=== PATIENT | male | born 1955 | race Caucasian/White ===

== ENCOUNTER 2019-11-04 09:02 | Emergency (ER) | payer OTHER ==
[2019-11-04] MEDS ORDERED: dexAMETHasone 10 MG/ML VIAL ONE (09:11)
[2019-11-04] MEDS ORDERED: EPINEPHRINE INH 0.5 ML VIAL IH ONE (09:11)
[2019-11-04 09:30] LABS: Protime INR 0.96
[2019-11-04 09:35] LABS: Basophils % 0.4 % (0-1.3); Hematocrit 48.4 % (39.6-49.0); Lymphocytes % 8.2 % (15.3-44.8); MPV 8.5 fL (7.6-11.3); RBC Red Blood Cell Count 5.29 M/uL (4.33-5.43)
[2019-11-04 09:44] LABS: ALT/SGPT 34 U/L (12-78); AST/SGOT 31 U/L (15-37); Albumin 3.9 g/dL (3.4-5.0); Alkaline Phosphatase 83 U/L (45-117); BUN Blood Urea Nitrogen 9 mg/dL (7-18); Bicarbonate 30 mmol/L (21-32); Bilirubin Direct 0.3 mg/dL (0-0.2); Bilirubin Total 0.9 mg/dL (0.2-1.0); Glucose Level 127 mg/dL (74-106); NT PRO-BNP 446 pg/mL (<125); Potassium 4.3 mmol/L (3.5-5.1); Protein, Total 8.7 g/dL (6.4-8.2); Sodium Level 134 mmol/L (136-145); Troponin (Emerg Dept Use Only) < 0.02 ng/mL (0.0-0.045)
--- NOTE | 2019-11-04 10:39 | RAD REPORT ---
EXAM DESCRIPTION: CT - Soft Tissue Neck W/Contr - 11/04/2019 10:07 am CLINICAL HISTORY: Difficulty breathing, history of head and neck mass COMPARISON: November 2016 TECHNIQUE: During dynamic enhancement using 100 milliliters nonionic IV contrast, axial 5 millimeter thick images of the neck were obtained. All CT scans are performed using dose optimization technique as appropriate and may include automated exposure control or mA/KV adjustment according to patient size. FINDINGS: Intracranial portion the examination is unremarkable. Mastoid air cells are clear. Mucosal thickening changes are present in the maxillary sinuses and ethmoid air cells. No air-fluid levels. Right deviation of the nasal septum is present. Bony degenerative changes are present throughout the cervical spine. Prominent facet joint degenerati ve changes are present. No pharyngeal mucosal mass identified. Parapharyngeal fat normal. No soft palate mass or asymmetry se en. Epiglottis is normal. Larynx is difficult to assess due to significant motion. Thickened, nodular vocal cords have been previously detailed. Residual or recurrent laryngeal nodule cannot be excluded or clearly evaluated on this study due to the motion. Significant luminal narrowing is not seen. The parotid, submandibular and thyroid gland tissue show no significant finding. No prevertebral soft tissue thickening. A few small nonspecific lymph nodes are present. No bulky lymphadenopathy. IMPRESSION: No suspicious mass or lymphadenopathy identifiable. No luminal narrowing, abscess or oth er emergent finding seen. Prior vocal cord nodularity cannot be assessed for compared on this study due to significant motion t hrough this region. No significant luminal narrowing at this site.
--- NOTE | 2019-11-04 10:39 | RAD REPORT ---
EXAM DESCRIPTION: RAD - Chest Single View - 11/04/2019 9:28 am CLINICAL HISTORY: Dyspnea COMPARISON: None. TECHNIQUE: AP portable chest image was obtained 0925 hours . FINDINGS: No focal mass or consolidation. Granuloma seen in the upper right lung field. Heart and va sculature are normal. No measurable pleural effusion and no pneumothorax. No acute bony abnormality s een. No acute aortic findings suspected. IMPRESSION: No acute cardiopulmonary process.
--- NOTE | 2019-11-04 11:35 | EDPHYS ---
Physician Documentation [facility] Name: Ladarius Alvarado Age: 64 yrs Sex: Male : 1955 Arrival Date: 11/04/2019 Time: 09:05 Bed 6 Private MD: ED Physician Severino Chapin HPI: 11/04 09:59 This 64 yrs old Male presents to ER via Ambulatory with complaints of jr8 Breathing Difficulty. 09:59 The patient has shortness of breath at rest. Onset: The symptoms/episode began/occurred jr8 gradually, 2 day(s) ago. Duration: The symptoms are continuous. The patient's shortness of breath has no apparent modifying factors. Associated signs and symptoms: The patient has no apparent associated signs or symptoms. Severity of symptoms: At their worst the symptoms were moderate in the emergency department the symptoms are unchanged. It is unknown whether or not the patient has had similar symptoms in the past. The patient has not recently seen a physician. 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 Stated that he has had to have it removed twice in past. Starting to have problems again. Feels as if he cannot breathe well now. Historical: - Allergies: 09:08 No Known Allergies; jl7 - Home Meds: 09:08 None [Active]; jl7 - PMHx: 09:08 None; jl7 - PSHx: 09:08 Jaw repair; "growth" in throat area x 2; jl7 - Immunization history:: Adult Immunizations unknown. - Social history:: Smoking status: Patient uses tobacco products, denies chronic smoking, but will smoke occasionally, Patient uses alcohol, on a daily basis. claims drinking about a 6 pack/day. - Ebola Screening: : Patient denies exposure to infectious person Patient denies travel to an Ebola-affected area in the 21 days before illness onset. ROS: 09:59 Eyes: Negative for injury, pain, redness, and discharge, Neck: Negative for injury, jr8 pain, and swelling, Cardiovascular: Negative for chest pain, palpitations, and edema, Abdomen/GI: Negative for abdominal pain, nausea, vomiting, diarrhea, and constipation, Back: Negative for injury and pain, MS/Extremity: Negative for injury and deformity, Skin: Negative for injury, rash, and discoloration, Neuro: Negative for headache, weakness, numbness, tingling, and seizure. 09:59 ENT: Positive for sore throat. 09:59 Respiratory: Positive for shortness of breath. Exam: 09:59 Eyes: Pupils equal round and reactive to light, extra-ocular motions intact. Lids and jr8 lashes normal. Conjunctiva and sclera are non-icteric and not injected. Cornea within normal limits. Periorbital areas with no swelling, redness, or edema. ENT: Nares patent. No nasal discharge, no septal abnormalities noted. Tympanic membranes are normal and external auditory canals are clear. Oropharynx with no redness, swelling, or masses, exudates, or evidence of obstruction, uvula midline. Mucous membranes moist. Patients voice hoarse. Mild stridor present Neck: Trachea midline, no thyromegaly or masses palpated, and no cervical lymphadenopathy. Supple, full range of motion without nuchal rigidity, or vertebral point tenderness. No Meningismus. Cardiovascular: Regular rate and rhythm with a normal S1 and S2. No gallops, murmurs, or rubs. Normal PMI, no JVD. No pulse deficits. Respiratory: Lungs have equal breath sounds bilaterally, clear to auscultation and percussion. No rales, rhonchi or wheezes noted. No increased work of breathing, no retractions or nasal flaring. Abdomen/GI: Soft, non-tender, with normal bowel sounds. No distension or tympany. No guarding or rebound. No evidence of tenderness throughout. Back: No spinal tenderness. No costovertebral tenderness. Full range of motion. Skin: Warm, dry with normal turgor. Normal color with no rashes, no lesions, and no evidence of cellulitis. MS/ Extremity: Pulses equal, no cyanosis. Neurovascular intact. Full, normal range of motion. Neuro: Awake and alert, GCS 15, oriented to person, place, time, and situation. Cranial nerves II-XII grossly intact. Motor strength 5/5 in all extremities. Sensory grossly intact. Cerebellar exam normal. Normal gait. Vital Signs: 09:08 BP 119 / 83; Pulse 104; Resp 22; Temp 99.1(TE); Pulse Ox 95% on R/A; Weight 61.23 kg; jl7 Height 5 ft. 7 in. (170.18 cm); Pain 0/10; 09:43 BP 112 / 82; Pulse 94; Resp 24 S; Pulse Ox 92% on R/A; Pain 0/10; jl7 09:43 Pulse Ox 97% on 2 lpm NC; jl7 10:42 BP 122 / 82; Pulse 90; Resp 20; Pulse Ox 95% on 2 lpm NC; tw2 11:32 BP 112 / 81; Pulse 86; Resp 20; Pulse Ox 96% on 2 lpm NC; tw2 12:38 BP 109 / 97; Pulse 81; Resp 20 S; Pulse Ox 94% on 2 lpm NC; ca1 09:08 Body Mass Index 21.14 (61.23 kg, 170.18 cm) jl7 MDM: 09:05 Patient medically screened. [email or web address] 11:32 Data reviewed: vital signs, nurses notes, lab test result(s), radiologic studies, CT [facility] scan, plain films. Data interpreted: Pulse oximetry: on room air is 96 %. Interpretation: normal. Counseling: I had a detailed discussion with the patient and/or guardian regarding: the historical points, exam findings, and any diagnostic results supporting the discharge/admit diagnosis, lab results, radiology results, the need to transfer to another facility. ED course: ENT and SICU sofa back upholsterer at [facility] were consulted and accepted patient for evaluation of laryngeal mass. 11/04 09:06 Order name: Basic Metabolic Panel 8 11/04 09:06 Order name: CBC with Diff jr8 11/04 09:06 Order name: LFT's [facility] 11/04 09:06 Order name: Magnesium [facility] 11/04 09:06 Order name: NT PRO-BNP [facility] 11/04 09:06 Order name: PT-INR [facility] 11/04 09:06 Order name: Troponin (emerg Dept Use Only) [facility] 11/04 09:39 Order name: CBC with Automated Diff; Complete Time: 09:53 EDMS 11/04 09:40 Order name: Protime (+INR); Complete Time: 09:53 EDMS 11/04 09:46 Order name: Basic Metabolic Panel EDMS 11/04 09:46 Order name: Liver (Hepatic) Function EDMS 11/04 09:46 Order name: Troponin (Emerg Dept Use Only) EDMS 11/04 09:46 Order name: NT PRO-BNP EDMS 11/04 09:46 Order name: Magnesium EDMS 11/04 09:06 Order name: XRAY Chest (1 view); Complete Time: 10:42 11/04 09:06 Order name: EKG; Complete Time: 09:11 11/04 09:06 Order name: Cardiac monitoring; Complete Time: :25 11/04 09:06 Order name: EKG - Nurse/Tech; Complete Time: :25 11/04 09:06 Order name: IV Saline Lock; Complete Time: :11/04 09:06 Order name: Labs collected and sent; Complete Time: 11/04 09:06 Order name: O2 Per Protocol; Complete Time: 09:11/04 09:06 Order name: O2 Sat Monitoring; Complete Time: :11/04 09:06 Order name: CT Soft Tissue Neck W/contr; Complete Time: 10:42 Administered Medications: 09:25 Drug: Decadron - Dexamethasone 10 mg Route: IVP; Site: right antecubital; jl7 10:00 Follow up: Response: No adverse reaction tw2 09:25 Drug: Racemic EPINPHrine 0.5 ml Route: Inhalation; jl7 Disposition: 11/04/19 11:33 Transfer ordered to [facility]. Diagnosis are Laryngeal Mass, Shortness of breath, Stridor. - Reason for transfer: Higher level of care. - Accepting physician is [facility]. - Condition is Stable. - Problem is new. - Symptoms have improved. Addendum: 11/06/2019 09:26 Co-signature as Attending Physician, Severino Chapin MD I agree with the assessment and c diaz plan of care. Signatures: Dispatcher [employer] Severino Jiménez MD MD cha Roszak, Josh, PA PA jr8 Brooke Love RN RN jl7 Kailey Mcconnell RN RN Janna Michaud RN tw2 Corrections: (The following items were deleted from the chart) 11/04 12:39 11:33 11/04/2019 11:33 Transfer ordered to [facility]. Diagnosis is ca1 Laryngeal Mass; Shortness of breath; Stridor. Reason for transfer: Higher level of care. Accepting physician is [facility]. Condition is Stable. Problem is new. Symptoms have improved. jr8
--- NOTE | 2019-11-04 11:35 | ER ---
Nurse's Notes [facility] Name: Ladarius Alvarado Age: 64 yrs Sex: Male : 1955 Arrival Date: 11/04/2019 Time: 09:05 Bed 6 Private MD: Diagnosis: Laryngeal Mass;Shortness of breath;Stridor Presentation: 11/04 09:05 Presenting complaint: Patient states: Breathing difficulty that began yesterday. Pt jl7 reports that this has been off and on for years and has had two surgeries to remove/ reduce a growth in his throat area which he believes is causing his breathing difficulties today. Transition of care: patient was not received from another setting of care. Onset of symptoms is unknown. Risk Assessment: Do you want to hurt yourself or someone else? Patient reports no desire to harm self or others. Initial Sepsis Screen: Does the patient meet any 2 criteria? RR > 20 per min. HR > 90 bpm. Does the patient have a suspected source of infection? No. Patient's initial sepsis screen is negative. Care prior to arrival: None. 09:05 Acuity: MILVIA 2 7 09:05 Method Of Arrival: Ambulatory [facility] Triage Assessment: 09:05 Respiratory: Reports shortness of breath Onset: The symptoms/episode began/occurred tw2 yesterday, the patient has moderate shortness of breath. Historical: - Allergies: 09:08 No Known Allergies; jl7 - Home Meds: 09:08 None [Active]; jl7 - PMHx: 09:08 None; jl7 - PSHx: 09:08 Jaw repair; "growth" in throat area x 2; jl7 - Immunization history:: Adult Immunizations unknown. - Social history:: Smoking status: Patient uses tobacco products, denies chronic smoking, but will smoke occasionally, Patient uses alcohol, on a daily basis. claims drinking about a 6 pack/day. - Ebola Screening: : Patient denies exposure to infectious person Patient denies travel to an Ebola-affected area in the 21 days before illness onset. Screenin:43 Abuse screen: Denies threats or abuse. Nutritional screening: No deficits noted. tw2 Tuberculosis screening: No symptoms or risk factors identified. Fall Risk None identified. Assessment: 09:20 General: Appears in no apparent distress. uncomfortable, Behavior is calm, cooperative, jl7 appropriate for age. Pain: Denies pain. Neuro: Level of Consciousness is awake, alert, obeys commands, Oriented to person, place, time, situation. Cardiovascular: Heart tones present Patient's skin is warm and dry. Rhythm is regular. Respiratory: Airway is patent Trachea deviated to left Respiratory effort is even, labored, Respiratory pattern is symmetrical, tachypnea Breath sounds are coarse bilaterally. Breath sounds are diminished bilaterally. Derm: Skin is pink, warm \\T\\ dry. 10:43 Reassessment: Patient appears in no apparent distress at this time. Patient and/or tw2 family updated on plan of care and expected duration. Pain level reassessed. Patient is alert, oriented x 3, equal unlabored respirations, skin warm/dry/pink. Patient states symptoms have improved. 11:33 Reassessment: Patient appears in no apparent distress at this time. Patient and/or tw2 family updated on plan of care and expected duration. Pain level reassessed. Patient is alert, oriented x 3, equal unlabored respirations, skin warm/dry/pink. 12:38 Reassessment: Patient appears in no apparent distress at this time. Patient is alert, ca1 oriented x 3, equal unlabored respirations, skin warm/dry/pink. Report given to TAMICA Brumfield. Vital Signs: 09:08 BP 119 / 83; Pulse 104; Resp 22; Temp 99.1(TE); Pulse Ox 95% on R/A; Weight 61.23 kg; jl7 Height 5 ft. 7 in. (170.18 cm); Pain 0/10; 09:43 BP 112 / 82; Pulse 94; Resp 24 S; Pulse Ox 92% on R/A; Pain 0/10; jl7 09:43 Pulse Ox 97% on 2 lpm NC; jl7 10:42 BP 122 / 82; Pulse 90; Resp 20; Pulse Ox 95% on 2 lpm NC; tw2 11:32 BP 112 / 81; Pulse 86; Resp 20; Pulse Ox 96% on 2 lpm NC; tw2 12:38 BP 109 / 97; Pulse 81; Resp 20 S; Pulse Ox 94% on 2 lpm NC; ca1 09:08 Body Mass Index 21.14 (61.23 kg, 170.18 cm) 7 ED Course: 09:05 Patient arrived in ED. jl7 09:05 Severino Chapin MD is Attending Physician. aleksandr 09:05 [facility] Castellon [facility]. jr8 09:05 Severino Chapin MD is Attending Physician. jr8 09:05 Bed in low position. Call light in reach. monitoring analyst on. Pulse ox on. NIBP on. tw2 09:07 Brooke Love, NIECY is Primary Nurse. jl7 09:07 Triage completed. jl7 09:08 Arm band placed on right wrist. jl7 09:18 Radiology exam delayed due to lab results not completed at this time. (BUN/Creatinine). bq 09:30 No provider procedures requiring assistance completed. Inserted saline lock: 20 gauge ca1 in right antecubital area, using aseptic technique. ,using aseptic technique. by NIECY Cox Blood collected. 10:01 Primary Nurse role handed off by Brooke Love RN jl7 10:03 XRAY Chest (1 view) In Process Unspecified. EDMS 10:09 CT completed. Patient tolerated procedure well. Patient moved back from CT. mw3 10:29 CT Soft Tissue Neck W/contr In Process Unspecified. EDMS 10:42 Janna Escobedo, NIECY is Primary Nurse. tw2 12:39 Patient transferred, IV remains in place. ca1 Administered Medications: 09:25 Drug: Decadron - Dexamethasone 10 mg Route: IVP; Site: right antecubital; jl7 10:00 Follow up: Response: No adverse reaction tw2 09:25 Drug: Racemic EPINPHrine 0.5 ml Route: Inhalation; jl7 Outcome: 11:33 ER care complete, transfer ordered by . jr8 12:39 Transferred by ground EMS to [facility], Transfer form completed. ca1 X-rays sent w/ patient. 12:39 Condition: stable 12:39 Instructed on the need for transfer. 12:39 Patient left the ED. ca1 Signatures: Dispatcher [employer] EDMS Severino Chapin MD MD cha Quilty, Betty bq Roszak, Josh, PA PA jr8 Janna Escobedo, RN RN tw2 Brooke Love RN RN jl7 Kelsi Avalos mw3 Kailey Mcconnell RN RN ca1 Corrections: (The following items were deleted from the chart) 11:33 10:42 BP 122 / 82; Pulse 90bpm; Resp 20bpm; Pulse Ox 95% RA; tw 11:33 11:32 BP 112 / 81; Pulse 86bpm; Resp 20bpm; Pulse Ox 96% RA;
[2019-11-04 13:04] VITALS: TEMP 99.1
[2019-11-04 13:10] VITALS: BP 109/97; O2SAT 94
--- NOTE | 2019-11-07 16:45 | EKG ---
Test Date: 2018-11-04 Test Time: 09:16:01 Video Game Producer: JUMA MEASUREMENT RESULTS: Intervals: Rate: 93 [place]: 148 QRSD: 76 QT: 368 QTc: 457 [place]: P: 68 [place]: 148 QRS: 63 T: 70 INTERPRETIVE STATEMENTS: Normal sinus rhythm Normal ECG Cardioserver Error - Incorrect date on EKG This EKG was performed on 11-04-2019 No previous ECG available for comparison Electronically Signed On 11-07-19 16:41:48 MANUFACTURING PROJECT ENGINEER by Salvador Foote
== END 2019-11-04 12:39 | disposition short-term general hospital (02) ==
LOC: ER 09:02
DX: J38.7 Other diseases of larynx (principal)
CPT/HCPCS: 93005; 85025; 80048; 36415; 83735; 85610; 80076; 84484; 83880; 70491; 71045; 96374; 99285; Q9967; J1100

== ENCOUNTER 2021-01-10 11:44 | Emergency (ER) | payer OTHER ==
--- OUTSIDE RECORDS SUMMARY | 2021-01-10 11:46 | XMS REPORT | Continuity of Care Document ---
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 Social History Social Habit Start Date Stop Date Quantity Comments Source Sex Assigned At [facility] Medications This patient has no known medications. Procedures This patient has no known procedures. Plan of Care Planned Activity Planned Date Details Comments Source Future Scheduled 2020-07-02 INFLUENZA VACCINE (#1) [facility]00 [code = INFLUENZA Medical Ce nter VACCINE (#1)] Future Scheduled 2019-06-[address] [facility] - Test 00:00:00 WELLNESS (YEAR 2 or Medical Center FIRST YEAR if no IPPE) [code = MEDICARE ANNUAL WELLNESS (YEAR 2 or FIRST YEAR if no IPPE)] Future Scheduled 2018 PNEUMOCOCCAL 65+ YRS [facility] - Test 00:00:00 (1 of 1 - Medical Center SUPU00_Nhoazcy PCV13) [code = PNEUMOCOCCAL 65+ YRS (1 of 1 - INLY19_Pmigxco PCV13)] Future Scheduled [address] [facility] - Test 00:00:00 malignant neoplasm of Medica l Center colon (procedure) [code = 881234326] Results Test Description Test Time Test Comments Results Result Sour e Comments TISSUE EXAM 2019-11-08 Surgical Pathology 18:03:00 Report Case: [id number] Authorizing Provider: Ines Burgess MD Collected: 11/05/2019 1236 Ordering Location: [address] Received: 11/06/2019 0822 Cardiovascular Pathologist: Jo Ann Adkins MD Specimens: A) - Soft Tissue, Other, RIGHT ANTERIOR SUPERGLOTTIS B) - Soft Tissue, Other, RIGHT MID AE FOLD C) - Soft Tissue, Other, RIGHT ARYTENOID D) - Soft Tissue, Other, LEFT ARYTENOID E) - Soft Tissue, Other, LEFT MID AE FOLD F) - Soft Tissue, Debridement, Laryngeal Debridement A. LARYNX, RIGHT ANTERIOR SUPRAGLOTTIS, LARYNGOSCOPIC DEBRIDEMENT: - SQUAMOUS PAPILLOMA - NO HIGH GRADE DYSPLASIA OR INVASIVE CARCINOMA SEENB.LARYNX, RIGHT MID AE FOLD, LARYNGOSCOPIC DEBRIDEMENT: - SQUAMOUS PAPILLOMA WITH LOW GRADE DYSPLASIA - NO HIGH GRADE DYSPLASIA OR INVASIVE CARCINOMA SEENC. LARYNX, RIGHT ARYTENOID, LARYNGOSCOPIC DEBRIDEMENT: - SQUAMOUS PAPILLOMA WITH LOW GRADE DYSPLASIA - NO HIGH GRADE DYSPLASIA OR INVASIVE CARCINOMA SEEND. LARYNX, LEFT ARYTENOID, LARYNGOSCOPIC DEBRIDEMENT: - SQUAMOUS PAPILLOMA WITH LOW GRADE DYSPLASIA - NO HIGH GRADE DYSPLASIA OR INVASIVE CARCINOMA SEENE. LARYNX, MID AE FOLD, LARYNGOSCOPIC DEBRIDEMENT: - SQUAMOUS PAPILLOMA WITH LOW GRADE DYSPLASIA - NO HIGH GRADE DYSPLASIA OR INVASIVE CARCINOMA SEENF. LARYNX, DEBRIDEMENT: - MULTIPLE FRAGMENTS OF SQUAMOUS PAPILLOMA WITH FOCAL LOW GRADE DYSPLASIA - NO HIGH GRADE DYSPLASIA OR INVASIVE CARCINOMA SEEN Signing Pathologist Direct Phone Line: [phone] ally signed by Jo Ann Adkins MD on 11/08/2019 at 6:03 PMHPV effect and parakeratosis [id number] X 6Airway obstructionParts A-E are all soft tissue other and part F is soft tissue, debridement A. Received in formalin labeled with the patient's name, accession number and "right anterior supraglottis" is a 0.5 x 0.5 x 0.3 cm marte-pink tissue, which is submitted in toto in A1. B. Received in formalin labeled with the patient's name, accession number and "right mid AE fold" is a 0.9 x 0.4 x 0.3 cm marte-pink papilliferous soft tissue, which is submitted in toto in B1. C. Received in formalin labeled with the patient's name, accession number and "right arytenoid" is a 0.7 x 0.5 x 0.3 cm marte-pink papilliferous soft tissue, which is submitted in toto in C1.D. Received in formalin labeled with the patient's name, accession number and "left arytenoid" is a 0.7 x 0.3 x 0.3 cm aggregate of marte-pink papilliferous soft tissue, which is submitted in toto in D1.E. Received in formalin labeled with the patient's name, accession number and "left mid AE fold" is a 0.4 x 0.3 x 0.3 cm aggregate of marte-pink papilliferous soft tissue, which is submitted in toto in E1.F. Received in formalin labeled with the patient's name, accession number and "laryngeal debridement" is a 10.0 x 2.0 x 0.4 cm aggregate of red-pink soft tissue, which is filtered and submitted in toto in F1-F6. PA/ewPERFORMED HEPATITIS C PCR, QUANTITATIVE 2019-11-07 16:37:00 Test Item Value Reference Range Interpretation Comme nts HCV NUMERIC RESULT (BEAKER) (test code = 2700) [id number] IU/mL <15 H This test uses a Real-Time Polymerase Chain Reaction (RT-PCR) methodology and was performed using VIDA Ampliprep/VIDA TaqMan HCV test kit version 2.0 ([employer]).Reportable range for this assay is 15 - 100,000,000 IU per mL (1.18 - 8.00 Log IU/mL).[id number] 05:27:00 Test Item Value Reference Range Interpretation Comments MAGNESIUM (BEAKER) 1.9 mg/dL 1.6-2.6 Specimen slightly (test code = 627) hemolyzed [id number] 05:27:00 Test Item Value Reference Range Interpretation Comments PHOSPHORUS (BEAKER) 2.0 mg/dL 2.3-4.7 L Specimen slightly (test code = 604) hemolyzed BASIC METABOLIC [id number] 05:27:00 Test Item Value Reference Range Interpretation Comments SODIUM (BEAKER) 139 meq/L 136-145 (test code = 381) POTASSIUM (BEAKER) 4.3 meq/L 3.5-5.1 Specimen slightly (test code = 379) hemolyzed CHLORIDE (BEAKER) 107 meq/L 98-107 (test code = 382) CO2 (BEAKER) (test 23 meq/L 22-29 code = 355) BLOOD UREA NITROGEN 8 mg/dL 7-21 (BEAKER) (test code = 354) CREATININE (BEAKER) 0.67 mg/dL 0.57-1.25 Specimen slightly (test code = 358) hemolyzed GLUCOSE RANDOM 90 mg/dL 70-105 (BEAKER) (test code = 652) CALCIUM (BEAKER) 8.2 mg/dL 8.4-10.2 L (test code = 697) EGFR (BEAKER) (test 119 mL/min/1.73 ESTIM ATED GFR IS code = 1092) sq m NOT ACCURATE CREATININE CLEARANCE IN PREDICTING GLOMERULAR FILTRATION RATE . ESTIMATED GFR I S NOT APPLICABLE FOR DIALYSIS PATIEN TS. CBC (HEMOGRAM ONLY)2019-11-07 04:58:00 Test Item Value Reference Range Interpretation Comments WHITE BLOOD CELL COUNT (BEAKER) 17.1 K/ L 3.5-10.5 H (test code = 775) RED BLOOD CELL COUNT (BEAKER) 4.25 M/ L 4.63-6.08 L (test code = 761) HEMOGLOBIN (BEAKER) (test code = 13.1 GM/DL 13.7-17.5 L 410) HEMATOCRIT (BEAKER) (test code = 40.0 % 40.1-51.0 L 411) MEAN CORPUSCULAR VOLUME (BEAKER) 94.1 fL 79.0-92.2 H (test code = 753) MEAN CORPUSCULAR HEMOGLOBIN 30.8 pg 25.7-32.2 (BEAKER) (test code = 751) MEAN CORPUSCULAR HEMOGLOBIN CONC 32.8 GM/DL 32.3-36.5 (BEAKER) (test code = 752) RED CELL DISTRIBUTION WIDTH 13.5 % 11.6-14.4 (BEAKER) (test code = 412) PLATELET COUNT (BEAKER) (test 279 K/CU MM 150-450 code = 756) MEAN PLATELET VOLUME (BEAKER) 10.9 fL 9.4-12.4 (test code = 754) NUCLEATED RED BLOOD CELLS 0 /100 WBC 0-0 (BEAKER) (test code = 413) [id number] 05:05:00 Test Item Value Reference Range Interpretation Comments MAGNESIUM (BEAKER) 1.9 mg/dL 1.6-2.6 Specimen slightly (test code = 627) hemolyzed [id number] 05:05:00 Test Item Value Reference Range Interpretation Comments PHOSPHORUS (BEAKER) 2.2 mg/dL 2.3-4.7 L Specimen slightly (test code = 604) hemolyzed BASIC METABOLIC [id number] 05:05:00 Test Item Value Reference Range Interpretation Comments SODIUM (BEAKER) 136 meq/L 136-145 (test code = 381) POTASSIUM (BEAKER) 4.3 meq/L 3.5-5.1 Specimen slightly (test code = 379) hemolyzed CHLORIDE (BEAKER) 104 meq/L 98-107 (test code = 382) CO2 (BEAKER) (test 27 meq/L 22-29 code = 355) BLOOD UREA NITROGEN 9 mg/dL 7-21 (BEAKER) (test code = 354) CREATININE (BEAKER) 0.70 mg/dL 0.57-1.25 Specimen slightly (test code = 358) hemolyzed GLUCOSE RANDOM 119 mg/dL 70-105 H (BEAKER) (test code = 652) CALCIUM (BEAKER) 8.7 mg/dL 8.4-10.2 (test code = 697) EGFR (BEAKER) (test 113 mL/min/1.73 ESTIM ATED GFR IS code = 1092) sq m NOT ACCURATE CREATININE CLEARANCE IN PREDICTING GLOMERULAR FILTRATION RATE . ESTIMATED GFR I S NOT APPLICABLE FOR DIALYSIS PATIEN TS. CBC (HEMOGRAM ONLY)2019-11-06 04:32:00 Test Item Value Reference Range Interpretation Comments WHITE BLOOD CELL COUNT 18.7 K/ L 3.5-10.5 H (BEAKER) (test code = 775) RED BLOOD CELL COUNT 4.33 M/ L 4.63-6.08 L (BEAKER) (test code = 761) HEMOGLOBIN (BEAKER) 13.5 GM/DL 13.7-17.5 L (test code = 410) HEMATOCRIT (BEAKER) 41.4 % 40.1-51.0 (test code = 411) MEAN CORPUSCULAR 95.6 fL 79.0-92.2 H Discordant MCV VOLUME (BEAKER) (test result compared to code = 753) previous result ; clinical correl ation required. MEAN CORPUSCULAR 31.2 pg 25.7-32.2 HEMOGLOBIN (BEAKER) (test code = 751) MEAN CORPUSCULAR 32.6 GM/DL 32.3-36.5 HEMOGLOBIN CONC (BEAKER) (test code = 752) RED CELL DISTRIBUTION 13.6 % 11.6-14.4 WIDTH (BEAKER) (test code = 412) PLATELET COUNT 279 K/CU MM 150-450 (BEAKER) (test code = 756) MEAN PLATELET VOLUME 10.0 fL 9.4-12.4 (BEAKER) (test code = 754) NUCLEATED RED BLOOD 0 /100 WBC 0-0 CELLS (BEAKER) (test code = 413) POCT-GLUCOSE [id number] 23:29:00 Test Item Value Reference Range Interpretation Comments POC-GLUCOSE METER 121 mg/dL 70-110 H : TESTED A T [facility] 6720 (BEAKER) (test code = [facility], 153) [id number]: Hydro Mechanic/Techni james ID = [id number] for MATT BARTLETT POCT-GLUCOSE [id number] 17:29:00 Test Item Value Reference Range Interpretation Comments POC-GLUCOSE METER 109 mg/dL 70-110 : TESTED A T [facility] 6720 (BEAKER) (test code = [facility], 153) 56435: Hydro Mechanic/Techni james ID = [id number] for GAYATHRI TERAN BASIC METABOLIC [id number] 03:24:00 Test Item Value Reference Range Interpretation Comments SODIUM (BEAKER) 134 meq/L 136-145 L (test code = 381) POTASSIUM (BEAKER) 4.3 meq/L 3.5-5.1 (test code = 379) CHLORIDE (BEAKER) 98 meq/L 98-107 (test code = 382) CO2 (BEAKER) (test 28 meq/L 22-29 code = 355) BLOOD UREA NITROGEN 16 mg/dL 7-21 (BEAKER) (test code = 354) CREATININE (BEAKER) 0.86 mg/dL 0.57-1.25 (test code = 358) GLUCOSE RANDOM 173 mg/dL 70-105 H (BEAKER) (test code = 652) CALCIUM (BEAKER) 9.4 mg/dL 8.4-10.2 (test code = 697) EGFR (BEAKER) (test 89 mL/min/1.73 ESTIMA MEKHI GFR IS code = 1092) sq m NOT ACCURATE CREATININE CLEARANCE IN PREDICTING GLOMERULAR FILTRATION RATE . ESTIMATED GFR I S NOT APPLICABLE FOR DIALYSIS PATIEN TS. [id number] 03:24:00 Test Item Value Reference Range Interpretation Comments PHOSPHORUS (BEAKER) (test code = 3.3 mg/dL 2.3-4.7 604) [id number] 03:24:00 Test Item Value Reference Range Interpretation Comments MAGNESIUM (BEAKER) (test code = 2.1 mg/dL 1.6-2.6 627) CBC (HEMOGRAM ONLY)2019-11-05 03:05:00 Test Item Value Reference Range Interpretation Comments WHITE BLOOD CELL COUNT (BEAKER) 9.2 K/ L 3.5-10.5 (test code = 775) RED BLOOD CELL COUNT (BEAKER) 5.08 M/ L 4.63-6.08 (test code = 761) HEMOGLOBIN (BEAKER) (test code = 15.6 GM/DL 13.7-17.5 410) HEMATOCRIT (BEAKER) (test code = 46.3 % 40.1-51.0 411) MEAN CORPUSCULAR VOLUME (BEAKER) 91.1 fL 79.0-92.2 (test code = 753) MEAN CORPUSCULAR HEMOGLOBIN 30.7 pg 25.7-32.2 (BEAKER) (test code = 751) MEAN CORPUSCULAR HEMOGLOBIN CONC 33.7 GM/DL 32.3-36.5 (BEAKER) (test code = 752) RED CELL DISTRIBUTION WIDTH 13.1 % 11.6-14.4 (BEAKER) (test code = 412) PLATELET COUNT (BEAKER) (test 304 K/CU MM 150-450 code = 756) MEAN PLATELET VOLUME (BEAKER) 10.1 fL 9.4-12.4 (test code = 754) NUCLEATED RED BLOOD CELLS 0 /100 WBC 0-0 (BEAKER) (test code = 413) CT, SOFT TISSUE NECK, [id number] 17:58:00Anesthesia:->NoneFINAL REPORT CT, SOFT TISSUE NECK, CONTRAST INDICATION: Neck mass, history of malignancy (Age > 15y) COMPARISON: None TECHNIQUE: Postcontrast CT images of the cervical soft tissues. Multiplanar, orthogonal reformatted images were generated. DOSE REDUCTION: Dose modulation, iterative reconstruction, and/or weight-based adjustment of the mA/kV was utilized to reduce the radiation dose to as low as reasonably achievable. FINDINGS: No discrete cervical mass or fluid collection. There is a punctate metallic foreign body embedded within the right sternocleidomastoid muscle. Aerodigestive tract: There is ill-defined debris or soft tissue at the level of the true vocal folds, but the apparent focal airway narrowing at this level may just be due to phase of swallowing during exam. Airway is patent.Lymph nodes: No adenopathy.Salivary glands: Parotid and submandibular glands are normal.Thyroid: Normal.Thoracic inlet: Large calcified granuloma in the right lung apex.Vasculature: Normal course and caliber of visualized vascular structures.Osseous structures: Minor spondylosis of the cervical spine. No fracture or aggressive osseous lesion.Orbits: Visualized globes are intact.Paranasal sinuses: No evidence of sinusitis. IMPRESSION: 1.Ill-defined soft tissue or debris at the level of the true vocal folds, may be better evaluated by direct visualization as clinically indicated.2.Otherwise, no discrete cervical mass or collection. No evidence of airway compromise.3.Punctate metallic foreign body embedded within the superficial aspect of the right sternocleidomastoid muscle. Signed: Eunice Lainez MDRmagdy Verified Date/Time: 11/04/2019 17:58:57 RAD, CHEST, 1 VIEW, NON [id number] 16:08:00Reason for exam:->SOBShould this be performed at the bedside?->YesFINAL REPORT AP view of the chest dated 11/04/2019 COMPARISON: November 05, 2016CLINICAL INFORMATION: SOB Comment: Heart is normal in size. Pulmonary vasculature is unremarkable. A 1 cm calcified granuloma is seen in the right upper lobe. The rest of the lungs are clear. No pulmonary infiltrate or pleural effusion is present. Impression: No active cardiopulmonary disease or interval change. Signed: Obdulia Ribeiro MDReport Verified Date/Time: 11/04/2019 16:08:39 Reading Location: [facility] C013X Ortho Consult Reading Room [id number] 15:29:00 Test Item Value Reference Range Interpretation Comments MAGNESIUM (BEAKER) 2.1 mg/dL 1.6-2.6 Specimen markedly (test code = 627) hemolyzed [id number] 15:29:00 Test Item Value Reference Range Interpretation Comments PHOSPHORUS (BEAKER) 4.3 mg/dL 2.3-4.7 Specimen markedly (test code = 604) hemolyzed BASIC METABOLIC [id number] 15:29:00 Test Item Value Reference Range Interpretation Comments SODIUM (BEAKER) 133 meq/L 136-145 L (test code = 381) POTASSIUM (BEAKER) 5.5 meq/L 3.5-5.1 H Specimen markedly (test code = 379) hemolyzed CHLORIDE (BEAKER) 95 meq/L 98-107 L (test code = 382) CO2 (BEAKER) (test 27 meq/L 22-29 code = 355) BLOOD UREA NITROGEN 10 mg/dL 7-21 (BEAKER) (test code = 354) CREATININE (BEAKER) 0.80 mg/dL 0.57-1.25 Specimen markedly (test code = 358) hemolyzed GLUCOSE RANDOM 112 mg/dL 70-105 H (BEAKER) (test code = 652) CALCIUM (BEAKER) 9.7 mg/dL 8.4-10.2 (test code = 697) EGFR (BEAKER) (test 97 mL/min/1.73 ESTIMA MEKHI GFR IS code = 1092) sq m NOT ACCURATE CREATININE CLEARANCE IN PREDICTING GLOMERULAR FILTRATION RATE . ESTIMATED GFR I S NOT APPLICABLE FOR DIALYSIS PATIEN TS. CBC W/PLT COUNT & AUTO [id number] 15:14:00 Test Item Value Reference Range Interpretation Comments WHITE BLOOD CELL COUNT (BEAKER) 11.4 K/ L 3.5-10.5 H (test code = 775) RED BLOOD CELL COUNT (BEAKER) 5.16 M/ L 4.63-6.08 (test code = 761) HEMOGLOBIN (BEAKER) (test code = 16.0 GM/DL 13.7-17.5 410) HEMATOCRIT (BEAKER) (test code = 47.3 % 40.1-51.0 411) MEAN CORPUSCULAR VOLUME (BEAKER) 91.7 fL 79.0-92.2 (test code = 753) MEAN CORPUSCULAR HEMOGLOBIN 31.0 pg 25.7-32.2 (BEAKER) (test code = 751) MEAN CORPUSCULAR HEMOGLOBIN CONC 33.8 GM/DL 32.3-36.5 (BEAKER) (test code = 752) RED CELL DISTRIBUTION WIDTH 13.2 % 11.6-14.4 (BEAKER) (test code = 412) PLATELET COUNT (BEAKER) (test 298 K/CU MM 150-450 code = 756) MEAN PLATELET VOLUME (BEAKER) 9.9 fL 9.4-12.4 (test code = 754) NUCLEATED RED BLOOD CELLS 0 /100 WBC 0-0 (BEAKER) (test code = 413) NEUTROPHILS RELATIVE PERCENT 94 % (BEAKER) (test code = 429) LYMPHOCYTES RELATIVE PERCENT 4 % (BEAKER) (test code = 430) MONOCYTES RELATIVE PERCENT 2 % (BEAKER) (test code = 431) EOSINOPHILS RELATIVE PERCENT 0 % (BEAKER) (test code = 432) BASOPHILS RELATIVE PERCENT 0 % (BEAKER) (test code = 437) NEUTROPHILS ABSOLUTE COUNT 10.69 K/ L 1.78-5.38 H (BEAKER) (test code = 670) LYMPHOCYTES ABSOLUTE COUNT 0.47 K/ L 1.32-3.57 L (BEAKER) (test code = 414) MONOCYTES ABSOLUTE COUNT (BEAKER) 0.20 K/ L 0.30-0.82 L (test code = 415) EOSINOPHILS ABSOLUTE COUNT 0.00 K/ L 0.04-0.54 L (BEAKER) (test code = 416) BASOPHILS ABSOLUTE COUNT (BEAKER) 0.02 K/ L 0.01-0.08 (test code = 417) IMMATURE GRANULOCYTES-RELATIVE 0 % 0-1 PERCENT (BEAKER) (test code = 5701)
--- NOTE | 2021-01-10 16:55 | RAD REPORT ---
EXAM DESCRIPTION: RAD - Knee Left 3 View - 01/10/2021 4:43 pm CLINICAL HISTORY: Left knee pain FINDINGS: No fracture or dislocation is seen. Bones are osteoporotic. Narrowing of the patella femoral compartment with osteophytes. Chondrocalcinosis. Calcific densities along the lateral aspect of the distal femur presumably chronic
[2021-01-10] MEDS ORDERED: LIDOCAINE 1% 20 ML MDV ONE (17:51)
--- NOTE | 2021-01-10 18:17 | EDPHYS ---
Physician Documentation [facility] Name: Ladarius Alvarado Age: 65 yrs Sex: Male : 1955 Arrival Date: 01/10/2021 Time: 11:50 Bed 30 Private MD: ED Physician Carlos Hewitt HPI: 01/10 17:15 This 65 yrs old Male presents to ER via Wheelchair with complaints of Knee jr8 Swelling. 17:15 Patient reports dropping toaster on L knee one year ago. Reports frequent bouts of jr8 swelling.. Historical: - Allergies: 12:51 No Known Allergies; aa5 - Home Meds: 12:51 None [Active]; aa5 - PMHx: 12:51 None; aa5 - PSHx: 12:51 Jaw repair; "growth" in throat area x 2; aa5 - Immunization history:: Adult Immunizations unknown. - Social history:: Smoking status: Patient reports the use of cigarette tobacco products, smokes one-half pack cigarettes per day. ROS: 17:16 Cardiovascular: Negative for chest pain, palpitations, and edema, Respiratory: Negative jr8 for shortness of breath, cough, wheezing, and pleuritic chest pain, Abdomen/GI: Negative for abdominal pain, nausea, vomiting, diarrhea, and constipation, Neuro: Negative for headache, weakness, numbness, tingling, and seizure. 17:16 MS/extremity: Positive for pain, swelling, tenderness, of the left leg. Exam: 17:17 Cardiovascular: Regular rate and rhythm with a normal S1 and S2. No gallops, murmurs, jr8 or rubs. Normal PMI, no JVD. No pulse deficits. Respiratory: Lungs have equal breath sounds bilaterally, clear to auscultation and percussion. No rales, rhonchi or wheezes noted. No increased work of breathing, no retractions or nasal flaring. Abdomen/GI: Soft, non-tender, with normal bowel sounds. No distension or tympany. No guarding or rebound. No evidence of tenderness throughout. Neuro: Awake and alert, GCS 15, oriented to person, place, time, and situation. Cranial nerves II-XII grossly intact. Motor strength 5/5 in all extremities. Sensory grossly intact. Cerebellar exam normal. Normal gait. 17:17 Musculoskeletal/extremity: Extremities: grossly normal except: noted in the left leg: pain, swelling, tenderness, ROM: limited active range of motion due to pain, in the left leg, Circulation is intact in all extremities. Sensation intact. 17:20 Musculoskeletal/extremity: Perfusion: the patient is warm, Perfusion: the extremity is jr8 normally perfused throughout. Vital Signs: 12:49 BP 108 / 82; Pulse 73; Resp 18 S; Temp 97.7(O); Pulse Ox 97% on R/A; aa5 16:00 BP 132 / 93; Pulse 85; Resp 18 S; Pulse Ox 98% on R/A; aa5 Procedures: 18:04 Joint Treatment: Aspiration of left knee using 18 gauge needle, Lidocaine, Removed 30 jr8 ml's of denny fluid, Specimen sent to lab. Dressed with band aid, compression bandage Patient tolerated well. MDM: 16:19 Patient medically screened. jr8 17:18 Data reviewed: vital signs, nurses notes, radiologic studies, plain films. jr8 17:18 Data interpreted: extractions technician: rate is 85 beats/min, Pulse oximetry: on room air is jr8 98 %. 18:15 Counseling: I had a detailed discussion with the patient and/or guardian regarding: the jr8 historical points, exam findings, and any diagnostic results supporting the discharge/admit diagnosis, lab results, radiology results, the need for outpatient follow up, a orthopedic surgeon, to return to the emergency department if symptoms worsen or persist or if there are any questions or concerns that arise at home. 03 18:00 Order name: Fluid Cell Count,Body; Complete Time: 22:12 jr8 01/10 18:00 Order name: Fluid Crystals; Complete Time: 22:12 jr8 01/10 16:03 Order name: Knee Left 3 View XRAY; Complete Time: 16:58 tw4 Administered Medications: 17:44 Drug: Lidocaine (1 %) 1 vials {Note: Administered by PA. Vianey} Volume: 20 ml; ss Route: Infiltration; Disposition: 18:53 Co-signature as Attending Physician, Carlos Hewitt MD I agree with the assessment and tw4 plan of care. Disposition: 01/10/21 18:17 Discharged to Home. Impression: Effusion, left knee. - Condition is Stable. - Discharge Instructions: Knee Effusion, Knee Arthrocentesis. - Prescriptions for meloxicam 15 mg Oral tablet - take 1 tablet by ORAL route once daily As needed; 16 tablet. - Medication Reconciliation Form, Thank You Letter, Antibiotic Education, Prescription Opioid Use form. - Follow up: Jose Jones MD; When: 1 week; Reason: Recheck today's complaints, Continuance of care, Re-evaluation by your physician. - Problem is new. - Symptoms have improved. Signatures: Dispatcher [employer] EDHI Nancy Pagan, RN RN aa5 Lenore Hallman RN RN ss Ata Castellon, PA PA jr8 Carlos Hewitt MD MD tw4 Corrections: (The following items were deleted from the chart) 18:23 18:17 01/10/2021 18:17 Discharged to Home. Impression: Effusion, left knee. Condition ss is Stable. Forms are Medication Reconciliation Form, Thank You Letter, Antibiotic Education, Prescription Opioid Use. Follow up: Jose Jones; When: 1 week; Reason: Recheck today's complaints, Continuance of care, Re-evaluation by your physician. Problem is new. Symptoms have improved. jr8
--- NOTE | 2021-01-10 18:17 | ER ---
Nurse's Notes [facility] Name: Ladarius Alvarado Age: 65 yrs Sex: Male : 1955 Arrival Date: 01/10/2021 Time: 11:50 Bed 30 Private MD: Diagnosis: Effusion, left knee Presentation: 01/10 12:49 Chief complaint: Patient states: left knee pain and swelling x 1 month ago. Pt denies aa5 recent injury. Coronavirus screen: At this time, the client does not indicate any symptoms associated with coronavirus-19. Ebola Screen: Patient negative for fever greater than or equal to 101.5 degrees Fahrenheit, and additional compatible Ebola Virus Disease symptoms. Initial Sepsis Screen: Does the patient meet any 2 criteria? No. Patient's initial sepsis screen is negative. Does the patient have a suspected source of infection? No. Patient's initial sepsis screen is negative. Risk Assessment: Do you want to hurt yourself or someone else? Patient reports no desire to harm self or others. Onset of symptoms was December 2020. 12:49 Acuity: MILVIA 4 aa5 12:49 Method Of Arrival: Wheelchair aa5 Historical: - Allergies: 12:51 No Known Allergies; aa5 - Home Meds: 12:51 None [Active]; aa5 - PMHx: 12:51 None; aa5 - PSHx: 12:51 Jaw repair; "growth" in throat area x 2; aa5 - Immunization history:: Adult Immunizations unknown. - Social history:: Smoking status: Patient reports the use of cigarette tobacco products, smokes one-half pack cigarettes per day. Screenin:30 Abuse screen: Denies threats or abuse. Denies injuries from another. Nutritional ss screening: No deficits noted. Tuberculosis screening: Never had TB. Fall Risk None identified. Assessment: 16:00 Reassessment: PA evaluating pt in triage room. aa5 17:30 General: Appears in no apparent distress. comfortable, Behavior is calm, cooperative. ss General: Denies fever. Pain: Complains of pain in left knee Pain currently is 8 out of 10 on a pain scale. Quality of pain is described as tender, Pain began x 1 month Is continuous. Neuro: Level of Consciousness is awake, alert, obeys commands, Oriented to person, place, time, situation, Setter Out are equal bilaterally. Cardiovascular: Capillary refill < 3 seconds is brisk in bilateral fingers Patient's skin is warm and dry. Respiratory: Airway is patent Respiratory effort is even, unlabored, Respiratory pattern is regular, symmetrical. GI: No signs and/or symptoms were reported involving the gastrointestinal system. Patient currently denies nausea. : No signs and/or symptoms were reported regarding the genitourinary system. EENT: Oral mucosa is moist. Derm: Skin is intact, is healthy with good turgor, Skin is dry, Skin is pink, warm \\T\\ dry. normal. Vital Signs: 12:49 BP 108 / 82; Pulse 73; Resp 18 S; Temp 97.7(O); Pulse Ox 97% on R/A; aa5 16:00 BP 132 / 93; Pulse 85; Resp 18 S; Pulse Ox 98% on R/A; aa5 ED Course: 11:50 Patient arrived in ED. ds1 12:49 Triage completed. aa5 12:49 Arm band placed on. aa5 16:05 Ata Castellon PA is PHCP. jr8 16:05 Carlos Hewitt MD is Attending Physician. jr8 16:43 Knee Left 3 View XRAY In Process Unspecified. EDMS 17:30 Patient has correct armband on for positive identification. Bed in low position. Call ss light in reach. 17:30 Needle aspiration to L knee. Pt tolerated well. ss 18:08 Lenore Hallman, NIECY is Primary Nurse. 18:16 Jose Jones MD is Referral Physician. jr8 18:22 Patient did not have IV access during this emergency room visit. ss Administered Medications: 17:44 Drug: Lidocaine (1 %) 1 vials {Note: Administered by TAD Winters.} Volume: 20 ml; ss Route: Infiltration; Outcome: 17:30 Discharged to home ambulatory. 17:30 Condition: improved 17:30 Discharge instructions given to patient, Instructed on discharge instructions, follow up and referral plans. medication usage, Demonstrated understanding of instructions, follow-up care, medications, Prescriptions given X 1. 18:17 Discharge ordered by . jr8 18:23 Patient left the ED. Signatures: Dispatcher [employer] EDAK Fadumo Thomas ds1 Nancy Pagan RN RN aa5 Lenore Hallman, NIECY RN ss Ata Castellon PA PA jr8 Corrections: (The following items were deleted from the chart) 18:23 18:22 No provider procedures requiring assistance completed. ss ss
[2021-01-10 18:30] VITALS: TEMP 97.7
[2021-01-10 18:32] VITALS: BP 132/93; O2SAT 98
[2021-01-10 19:19] LABS: Appearance TURBID (CLEAR); Body Fluid Source SYNOVIAL; Body Fluid WBC 11075 /mm^3; Color of fluid Red (COLORLESS)
== END 2021-01-10 18:23 | disposition home or self-care (01) ==
LOC: ER 11:44
PROC: 0S9D3ZZ Drainage of Left Knee Joint, Percutaneous Approach (ICD-10-PCS; principal; 2021-01-10)
DX: M25.462 Effusion, left knee (principal); F17.210 Nicotine dependence, cigarettes, uncomplicated
CPT/HCPCS: 36415; 89050; 89060; 99283